=== PATIENT | female | born 1990 | race Caucasian/White ===

== ENCOUNTER → 2020-04-27 17:02 | Outpatient (BNVA) | payer SELFPAY | PROVIDERS: Family Provider Emergency Medicine; PCP Emergency Medicine; Visit Provider Nurse Practitioner Family | DX: N39.0 Urinary tract infection, site not specified (principal) | CPT/HCPCS: 81000 ==

== ENCOUNTER → 2020-08-02 11:46 | Outpatient (BNVA) | payer OTHER, SELFPAY | PROVIDERS: Family Provider Emergency Medicine; PCP Emergency Medicine; Visit Provider Emergency Medicine | DX: R10.9 Unspecified abdominal pain (principal); R10.12 Left upper quadrant pain; N39.0 Urinary tract infection, site not specified | CPT/HCPCS: 80053; 81000; 83690; 85025 ==

== ENCOUNTER → 2020-11-19 15:15 | Outpatient (BNVA) | payer BC, SELFPAY | PROVIDERS: Family Provider Emergency Medicine; PCP Emergency Medicine; Visit Provider Emergency Medicine | DX: N39.0 Urinary tract infection, site not specified (principal); Z31.9 Encounter for procreative management, unspecified; Z33.1 Pregnant state, incidental | CPT/HCPCS: 81000; 81025 ==

== ENCOUNTER → 2021-03-29 11:35 | Outpatient (BNVA) | payer BC, SELFPAY | PROVIDERS: Family Provider Emergency Medicine; PCP Emergency Medicine; Visit Provider Nurse Practitioner Family | DX: N39.0 Urinary tract infection, site not specified (principal); J02.9 Acute pharyngitis, unspecified | CPT/HCPCS: 81000; 87071; 87880 ==

== ENCOUNTER → 2021-09-28 11:45 | Outpatient (BNVA) | payer BC, SELFPAY | PROVIDERS: Family Provider Emergency Medicine; PCP Emergency Medicine; Visit Provider Emergency Medicine | DX: N39.0 Urinary tract infection, site not specified (principal) | CPT/HCPCS: 81000 ==